=== PATIENT | male | born 1945 | race Caucasian/White ===

== ENCOUNTER 2017-08-13 01:21 | Emergency (ER) | payer OTHER ==
[~2017-08-13] VITALS: Ht 182.9 cm; Wt 95.0 kg
[2017-08-13 01:28] VITALS: Ht 182.9 cm; Wt 95.0 kg
[2017-08-13 03:21] VITALS: BP 148/105
== END 2017-08-13 03:21 | disposition home or self-care (01) ==
LOC: ED 01:21
DX: R04.0 Epistaxis (principal); E11.9 Type 2 diabetes mellitus without complications